=== PATIENT | female | born 1945 | race Caucasian/White ===

== ENCOUNTER 2017-08-25 11:16 | Emergency (ER) | payer OTHER ==
[2017-08-25] MEDS ORDERED: ALBUTEROL 3 ML DEYVIAL ONE (11:20)
[2017-08-25] MEDS ORDERED: IPRATROPIUM/ALBUTEROL 3 ML DEYVIAL ONE (11:31)
[2017-08-25] MEDS ORDERED: ALBUTEROL 3 ML DEYVIAL IH ONE ×2 (11:35→12:26)
[2017-08-25] MEDS ORDERED: IPRATROPIUM/ALBUTEROL 3 ML DEYVIAL IH ONE (11:35)
--- NOTE | 2017-08-25 12:19 | EDPHY ---
H & P Time Seen by Provider: 08/25/17 12:18 HPI/ROS: Chief complaint. Asthma attack HPI. A 71-year-old female presents emergency department with shortness of breath. She is visiting from [place]. She forgot her nebulizer. She feels that the pollen is bothering her. She does not feel that she sick including fever. Cough but that is nonproductive. No chest discomfort. No abdominal pain. Similar symptoms previously. Patient feels that this is typical asthma exacerbation. ROS Constitutional. no fever/chills, no weakness Eyes. no problems with vision ENT. no sore throat, no nasal drainage Cardiovascular. no chest pain Respiratory. Shortness of breath and nonproductive cough Abdominal. no abdominal pain, no nausea/vomiting, no diarrhea . no problems urinating MS. no calf pain/swelling, no neck/back pain, no joint pain Skin. no rash Lymph. no swollen glands Neuro. no headache, no dizziness, no difficulty walking or with speech Past Medical/Surgical History: Past medical history is significant for asthma, depression, kidney cancer Social History: , nonsmoker, no alcohol Smoking Status: Never smoked Physical Exam: General Appearance: Alert well-developed female moderate distress vital signs significant for respiratory rate of 40 Eyes: Pupils equal and round no pallor or injection. ENT, Mouth: Mucous membranes are moist. Respiratory: There retractions and accessory muscle use. Inspiratory expiratory rhonchi and wheezing Cardiovascular: Regular rate and rhythm. Gastrointestinal: Abdomen is soft and nontender, no masses, bowel sounds normal. Neurological: Awake and alert, sensory and motor exams grossly normal. Skin: Warm and dry, no rashes. Musculoskeletal: Neck is supple nontender. Extremities symmetrical, full range of motion. Psychiatric: Patient is oriented X 3, there is no agitation. Constitutional: Initial Vital Signs Temperature (C) 35.7 C L 08/25/17 11:25 Heart Rate 98 08/25/17 11:25 Respiratory Rate 40 H 08/25/17 11:25 Blood Pressure 164/100 H 08/25/17 11:25 O2 Sat (%) 93 08/25/17 11:25 O2 Delivery Mode Room Air Allergies/Adverse Reactions: codeine Allergy (Verified 08/25/17 11:22) Penicillins Allergy (Verified 08/25/17 11:22) Sulfa (Sulfonamide Antibiotics) Allergy (Verified 08/25/17 11:22) Home Medications: Medication Instructions Recorded Albuterol 08/25/17 Albuterol Hfa Anes Only [Proair 2 puffs IH QID PRN #1 mdi 08/25/17 Hfa Icu (*)] Alprazolam 08/25/17 Caltrate+D3 Plus Mineral Minis 08/25/17 Doxepin HCl 08/25/17 Escitalopram Oxalate 08/25/17 [place]il 08/25/17 Lamotrigine 08/25/17 Liothyronine Sodium 08/25/17 Mirtazapine 08/25/17 Prednisone 08/25/17 Proair Hfa 08/25/17 Singulair 08/25/17 Venlafaxine HCl 08/25/17 ZOLPIDEM TARTRATE 08/25/17 Zyrtec 08/25/17 predniSONE 40 mg PO DAILY #8 tablet 08/25/17 Medical Decision Making - Diagnostics Imaging Results: Imaging Impressions Chest X-Ray 08/25/17 12:26 Impression: 1. Bibasilar opacities, atelectasis versus pneumonia. 2. Suspect airways disease. 3. Shallow inspiration. Chest x-ray interpreted by me shows no evidence for pneumonia. Procedures: DuoNeb updraft, albuterol updraft x2 IV Solu-Medrol ED Course/Re-evaluation: On re-evaluation patient is much improved. She is conversational and speaking in full sentences. Listening to her lungs again there is good air movement and no wheezing. She feels well to be discharged. Patient and I discussed treatment plan including criteria for return importance of follow-up and further evaluation. She expresses understanding and agreement Differential Diagnosis: This appears to be asthma exacerbation. No evidence for pneumonia, sepsis. - Data Points Laboratory Results: Laboratory Results 08/25/17 11:20 08/25/17 11:20 08/25/17 08/25/17 11:20 11:20 WBC 6.76 10^3/uL 10^3/uL (3.80-9.50) RBC 4.23 10^6/uL 10^6/uL (4.18-5.33) Hgb 14.1 g/dL g/dL (12.6-16.3) Hct 41.5 % % (38.0-47.0) MCV 98.1 fL fL (81.5-99.8) MCH 33.3 pg pg (27.9-34.1) MCHC 34.0 g/dL g/dL (32.4-36.7) RDW 12.9 % % (11.5-15.2) Plt Count 212 10^3/uL 10^3/uL (150-400) MPV 9.5 fL fL (8.7-11.7) Neut % (Auto) 62.4 % % (39.3-74.2) Lymph % (Auto) 23.4 % % (15.0-45.0) [place] % (Auto) 10.5 % % (4.5-13.0) Eos % (Auto) 2.7 % % (0.6-7.6) Baso % (Auto) 0.3 % % (0.3-1.7) Nucleat RBC Rel Count 0.0 % % (0.0-0.2) Absolute Neuts (auto) 4.22 10^3/uL 10^3/uL (1.70-6.50) Absolute Lymphs (auto) 1.58 10^3/uL 10^3/uL (1.00-3.00) Absolute Monos (auto) 0.71 10^3/uL 10^3/uL (0.30-0.80) Absolute Eos (auto) 0.18 10^3/uL 10^3/uL (0.03-0.40) Absolute Basos (auto) 0.02 10^3/uL 10^3/uL (0.02-0.10) Absolute Nucleated RBC 0.00 10^3/uL 10^3/uL (0-0.01) Immature Gran % 0.7 % % (0.0-1.1) Immature Gran # 0.05 10^3/uL 10^3/uL (0.00-0.10) Sodium 146 mEq/L H mEq/L (135-145) Potassium 3.5 mEq/L mEq/L (3.3-5.0) Chloride 107 mEq/L mEq/L (97-110) Carbon Dioxide 26 mEq/l mEq/l (22-31) Anion Gap 13 mEq/L mEq/L (8-16) BUN 22 mg/dL mg/dL (7-23) Creatinine 0.9 mg/dL mg/dL (0.6-1.0) Estimated GFR > 60 Glucose 100 mg/dL mg/dL (70-100) Calcium 9.3 mg/dL mg/dL (8.5-10.4) Medications Given: Discontinued Medications Albuterol (Proventil Neb) 3 ml IH EDNOW ONE Stop: 08/25/17 11:36 Last Admin: 08/25/17 11:35 Dose: 3 ml Albuterol (Proventil Neb) 3 ml IH EDNOW ONE Stop: 08/25/17 12:27 Last Admin: 08/25/17 13:04 Dose: 3 ml Albuterol/Ipratropium (Duoneb) 3 ml IH EDNOW ONE Stop: 08/25/17 11:36 Last Admin: 08/25/17 11:36 Dose: 3 ml Sodium Chloride (Ns) 1,000 mls @ 0 mls/hr IV ONCE ONE; Wide Open PRN Reason: Protocol Stop: 08/25/17 12:27 Last Admin: 08/25/17 13:04 Dose: 1,000 mls Methylprednisolone Sodium Succinate (Solu-Medrol) 125 mg IVP EDNOW ONE Stop: 08/25/17 12:27 Last Admin: 08/25/17 13:04 Dose: 125 mg Departure - Departure Disposition: Home, Routine, Self-Care Clinical Impression: Exacerbation of asthma Qualifiers: Asthma severity: severe Asthma persistence: persistent Qualified Code(s): J45.51 - Severe persistent asthma with (acute) exacerbation Condition: Good Instructions: Asthma (ED) Additional Instructions: Albuterol inhaler using 2 puffs every 3-4 hours as needed for breathing. Prednisone daily for the next 4 days. Begin prednisone tomorrow as we gave you IV dose in the emergency department Return for worsening symptoms. Referrals: SHILO YING [Other] - As per Instructions Prescriptions: Albuterol Hfa Anes Only [Proair Hfa Icu (*)] 2 puffs IH QID PRN #1 mdi PRN Reason: Short Of Breath/Dyspnea predniSONE 40 mg PO DAILY #8 tablet
[2017-08-25] MEDS ORDERED: NS 1,000 ML IV ONE (12:26)
[2017-08-25] MEDS ORDERED: methylPREDNISolone SOD SUCC 125 MG/2 ML VIAL IVP ONE (12:26)
[2017-08-25 12:31] LABS: PLATELET COUNT 212 10^3/uL (150-400)
[2017-08-25 13:52] VITALS: BP 123/73
== END 2017-08-25 13:50 | disposition home or self-care (01) ==
DX: J45.51 Severe persistent asthma with (acute) exacerbation (principal); E86.9 Volume depletion, unspecified; Z85.528 Personal history of other malignant neoplasm of kidney
CPT/HCPCS: 71045; 96374; 99284; J2930; J7613